=== PATIENT | male | born 1950 | race Caucasian/White ===

== ENCOUNTER → 2020-06-01 | Outpatient (CLI) | payer MEDICARE ==
[2020-06-01 10:16] LABS: HCT 45.3 % (39.0-53.0); HGB 14.6 gm/dL (13.0-17.5); MCH 31.2 pg (25.0-35.0); MCHC 32.3 g/dL (31.0-37.0); MCV 96.7 fL (80.0-100.0); Mean Platelet Volume 7.7; Platelet Count 280 k/uL (150-450); RBC 4.68 m/uL (4.30-5.90); RDW 13.3 % (11.5-15.5); WBC 4.8 k/uL (3.8-10.6)
[2020-06-01 10:27] LABS: INR 0.9 (<1.2); Partial Thromboplastin Time 24.3 sec (22.0-30.0); Prothrombin Time 9.7 sec (9.0-12.0)
[2020-06-01 10:35] LABS: ALT 20 U/L (4-49); AST 26 U/L (17-59); African American GFR (CKD) >90 (>60 ml/min/1.73 sqM); Albumin 3.8 g/dL (3.5-5.0); Alkaline Phosphatase 60 U/L (38-126); Anion Gap 3 mmol/L; Blood Urea Nitrogen 17 mg/dL (9-20); Calcium 8.7 mg/dL (8.4-10.2); Carbon Dioxide 26 mmol/L (22-30); Chloride 110 mmol/L (98-107); Glucose 91 mg/dL (74-99); Non-African American GFR(CKD) >90 (>60 ml/min/1.73 sqM); Potassium 4.5 mmol/L (3.5-5.1); Sodium 139 mmol/L (137-145); Total Bilirubin 0.6 mg/dL (0.2-1.3); Total Protein 6.8 g/dL (6.3-8.2)
[2020-06-01 12:01] LABS: Appearance,Urine Cloudy (Clear); Bacteria,Urine Occasional /hpf; Bilirubin,Urine Negative (Negative); Blood,Urine Negative (Negative); Color,Urine Yellow; Glucose,Urine (UA) Negative (Negative); Ketones,Urine Negative (Negative); Leukocyte Esterase,Urine Large (Negative); Mucus,Urine Occasional /hpf; Nitrite,Urine Positive (Negative); Protein,Urine Trace (Negative); Specific Gravity,Urine 1.021 (1.001-1.035); Squamous Epithelial Cell,Urine <1 /hpf (0-4); WBC,Urine 51 /hpf (0-5)
== END | disposition home or self-care (01) ==
LOC: LABPAT 08:38
PROVIDERS: ATTEND Orthopaedic Surgery
DX: Z01.818 Encounter for other preprocedural examination (principal); M16.11 Unilateral primary osteoarthritis, right hip; Z01.812 Encounter for preprocedural laboratory examination
CPT/HCPCS: 80053; 81001; 85027; 85610; 85730; 87070

== ENCOUNTER → 2020-08-24 | Outpatient (CLI) | payer MEDICARE ==
[2020-08-24 12:01] LABS: HCT 47.2 % (39.0-53.0); HGB 15.5 gm/dL (13.0-17.5); MCH 31.6 pg (25.0-35.0); MCHC 32.8 g/dL (31.0-37.0); MCV 96.4 fL (80.0-100.0); Mean Platelet Volume 7.5; Platelet Count 258 k/uL (150-450); RDW 12.6 % (11.5-15.5); WBC 6.1 k/uL (3.8-10.6)
[2020-08-24 12:12] LABS: Appearance,Urine Clear (Clear); Bacteria,Urine Many /hpf; Bilirubin,Urine Negative (Negative); Blood,Urine Negative (Negative); Color,Urine Light Yellow; Glucose,Urine (UA) Negative (Negative); Ketones,Urine Negative (Negative); Leukocyte Esterase,Urine Moderate (Negative); Mucus,Urine Rare /hpf; Nitrite,Urine Negative (Negative); PH, Urine 5.5 (5.0-8.0); Protein,Urine Negative (Negative); RBC,Urine 2 /hpf (0-5); Squamous Epithelial Cell,Urine <1 /hpf (0-4); Urobilinogen,Urine <2.0 mg/dL (<2.0); WBC,Urine 13 /hpf (0-5)
[2020-08-24 12:17] LABS: ALT 26 U/L (4-49); AST 28 U/L (17-59); African American GFR (CKD) >90 (>60 ml/min/1.73 sqM); Albumin 4.4 g/dL (3.5-5.0); Alkaline Phosphatase 60 U/L (38-126); Anion Gap 8 mmol/L; Blood Urea Nitrogen 16 mg/dL (9-20); Calcium 9.5 mg/dL (8.4-10.2); Carbon Dioxide 27 mmol/L (22-30); Chloride 104 mmol/L (98-107); Glucose 90 mg/dL (74-99); Non-African American GFR(CKD) >90 (>60 ml/min/1.73 sqM); Potassium 4.9 mmol/L (3.5-5.1); Sodium 139 mmol/L (137-145); Total Bilirubin 0.7 mg/dL (0.2-1.3); Total Protein 7.5 g/dL (6.3-8.2)
[2020-08-24 12:23] LABS: INR 0.9 (<1.2); Partial Thromboplastin Time 23.6 sec (22.0-30.0); Prothrombin Time 10.1 sec (9.0-12.0)
== END | disposition home or self-care (01) ==
LOC: LABPAT 10:34
PROVIDERS: ATTEND Orthopaedic Surgery
DX: Z01.818 Encounter for other preprocedural examination (principal); M25.551 Pain in right hip; M16.11 Unilateral primary osteoarthritis, right hip; Z79.01 Long term (current) use of anticoagulants
CPT/HCPCS: 36415; 80053; 81001; 85027; 85610; 85730; 86850; 86900; 86901; 87086

== ENCOUNTER 2020-08-30 05:31 | Day surgery (SDC) | payer MEDICARE ==
[2020-08-24 15:38] VITALS: BMI 30.5
[~2020-08-30 05:31] MED LIST: ACETAMINOPHEN TAB 500 MG TAB PO PRN; GABAPENTIN 300 MG CAP PO PRN; MELOXICAM 7.5 MG TAB PO PRN; TRANEXAMIC ACID 1,000 MG in SODIUM CHLORIDE 0.9% 100 ML IVPB PRN
[2020-08-30] MEDS ORDERED: LACTATED RINGERS 1,000 ML IV SCH (05:33)
[2020-08-30] MEDS ORDERED: ONDANSETRON 4 MG/2 ML VIAL IVP ONE (05:33)
[2020-08-30] MEDS ORDERED: LIDOCAINE 1% (10MG/ML) FOR IV START INTRADERMA PRN (05:33)
[2020-08-30] MEDS ORDERED: DEXAMETHASONE SOD PHOSPHATE 4 MG/ML 1 ML VIAL IV ONE (05:33)
[2020-08-30] MEDS ORDERED: SODIUM CHLORIDE 0.9% 100 ML BAG ONE (06:53)
[2020-08-30] MEDS ORDERED: PROPOFOL 10 MG/ML 20 ML VIAL IV ONE (06:53)
[2020-08-30] MEDS ORDERED: HYDROmorphone (PF) 1 MG/ML ONE (06:53)
[2020-08-30] MEDS ORDERED: TRANEXAMIC ACID 1,000 MG/10 ML VIAL ONE (06:53)
[2020-08-30] MEDS ORDERED: MIDAZOLAM 2 MG/2 ML VIAL ONE (06:53)
[2020-08-30] MEDS ORDERED: HEPARIN SODIUM,PORCINE 10,000 UNIT/ML 1 ML VIAL ONE (06:53)
[2020-08-30] MEDS ORDERED: GLYCOPYRROLATE 0.2 MG/ML 2 ML VIAL ONE (06:53)
[2020-08-30] MEDS ORDERED: NEOSTIGMINE 1 MG/ML 10 ML VIAL ONE (06:53)
[2020-08-30] MEDS ORDERED: PHENYLEPHRINE-0.9% NACL SYG 1,000 MCG/10 ML SYRINGE ONE (06:53)
[2020-08-30] MEDS ORDERED: ROCURONIUM 10 MG/ML (5 ML VIAL) IV ONE (06:53)
[2020-08-30] MEDS ORDERED: LIDOCAINE 1% INJ 10MG/ML (20 ML MDV) ONE (06:53)
[2020-08-30] MEDS ORDERED: SODIUM CHLORIDE 0.9% IRRIG 1,000 ML BTL IRRIGATION ONE (06:53)
[2020-08-30] MEDS ORDERED: ePHEDrine SULFATE/0.9% NACL/PF 50 MG/5 ML SYRINGE IV ONE (06:53)
[2020-08-30] MEDS ORDERED: fentaNYL (PF) 50 MCG/ML 2 ML AMP ONE (06:53)
[2020-08-30] MEDS ORDERED: SUCCINYLCHOLINE CHLORIDE 100 MG/5 ML SYR IV ONE (06:53)
[2020-08-30] MEDS ORDERED: ceFAZolin 3,000 MG in SODIUM CHLORIDE 0.9% IRRIGATIO 3,000 ML IRRIGATION ONE (06:58)
[2020-08-30] MEDS ORDERED: HYDROmorphone 0.2 MG/1 ML SYRINGE IVP PRN (07:04)
[2020-08-30] MEDS ORDERED: NALOXONE 0.4 MG/ML 1 ML VIAL IV PRN (07:04)
[2020-08-30] MEDS ORDERED: HYDROmorphone 0.5 MG/0.5 ML SYRINGE IVP PRN ×2 (07:04)
[2020-08-30] MEDS: ROPIVACAINE 246.25 MG, EPINEPHrine 0.5 MG, KETOROLAC 30 MG, cloNIDine HCL/PF 80 MCG, WA... MISCELLANE PRN ×10 (07:05→08:04)
[2020-08-30] MEDS ORDERED: HYDROcodone/APAP 7.5-325MG 1 EACH TAB PO PRN ×2 (07:05)
[2020-08-30] MEDS ORDERED: SODIUM CHLORIDE 0.9% 1,000 ML IV SCH (07:15)
[2020-08-30] MEDS ORDERED: LACTATED RINGERS 1,000 ML IV ONE (08:22)
--- NOTE | 2020-08-30 08:26 | FL ---
EXAMINATION TYPE: FL guidance operating room, XR Hip Limited RT DATE OF EXAM: 08/30/2020 CLINICAL HISTORY: Right hip pain and osteoarthritis. TECHNIQUE: Fluoroscopy. X-ray right hip limited intraoperatively. COMPARISON: None. FINDINGS: Fluoroscopic guidance was provided during right hip replacement procedure performed by Dr. Bergman. A total of 25 seconds of fluoroscopic time was utilized during the procedure and 2 spot i ntraoperative images are acquired. Intraoperative images obtained show metallic hardware from total right hip arthroplasty satisfactory in position on frontal projection. IMPRESSION: As Above.
--- NOTE | 2020-08-30 08:29 | P.OP ---
Date of Procedure: 08/30/20 Preoperative Diagnosis: severe osteoarthritis right hip Postoperative Diagnosis: severe osteoarthritis right hip Procedure(s) Performed: right total hip arthroplasty with a direct anterior approach Implants: [employer] Polarstem standard size 5 [employer] R3, 3 hole hemispherical acetabular shell, 54 mm [employer] Reflection 6.5 mm cancellus screw, 20 mm 2 [employer] R3, XLPE 20 acetabular liner [employer] Oxinium femoral head 36 m, +4 All components were press-fit. The articulation is Oxinium on polyethylene. Anesthesia: GETA Surgeon: Didier Bergman Cornetist #1: Nellie Saleh Estimated Blood Loss (ml): 150 (67 mL returned with Cell Saver) Pathology: other (femoral head) Condition: stable Disposition: PACU Indications for Procedure: After failure of conservative treatment we discussed the surgical and nonsurgical treatment options at length. Patient wishes to proceed with a total hip arthroplasty with a direct anterior approach. Complications specific to this procedure were discussed at length, including but not limited to infection, leg length discrepancy, dislocation, nerve injury, and fracture. Covid-19 was also discussed at length with the patient, and they are aware of the current policies and procedures. The patient was given the option of delaying surgery, but they elect to proceed knowing these risks. Patient is aware of all these complications and informed consent was obtained Operative Findings: the operative findings are consistent with severe osteoarthritis of the right hip Description of Procedure: Patient was seen and evaluated in the preoperative area and the consent was reviewed. The operative site was marked with a skin marker. The patient was then brought to the operating room and given preoperative antibiotics intravenously. 1 g of Tranexamic acid was also given intravenously. A general anesthetic was administered by the anesthesia department. The patient was then placed on the [place] table with the bony prominences well-padded. The hip area was then prepped with a ChloraPrep solution and draped in the usual sterile fashion. A universal timeout was then performed, which confirmed the patient's name, surgical site, ALLERGIES, and procedure being performed on the consent. Next the incision site was located at 1 cm distal to the anterior superior iliac spine along the flexion crease of the right hip. The skin and subcutaneous tissues were sharply incised. Incision was carefully dissected down to the fascia overlying the tensor fascia claudine muscle. This fascia was then incised in line with the incision. Care was taken to stay laterally in order to avoid injuring the lateral femoral cutaneous nerve. Next, using blunt finger dissection, the tensor fascia claudine muscle was dissected off its investing fascia. The muscle was then carefully retracted laterally with a cobra retractor over the lateral neck of the femur. Next, the circumflex vessels were identified and cauterized using the AquaMantis device. The anterior hip capsule was then exposed. The capsule was then opened and an inverted T fashion. Cobra retractors were then placed intracapsularly. The retractors were maintained intracapsular throughout the procedure. The proximal femur was then visualized. A small amount of traction was placed on the leg. The femoral neck was then osteotomized appropriate level above the lesser trochanter. A small wedge of bone was then removed from the remaining femoral head. Next, using a corkscrew the femoral head was removed from the acetabulum. On gross visual inspection, the femoral head had complete loss of articular cartilage and multiple periarticular osteophytes. The femoral head was then measured. Attention was then turned to the acetabulum. The acetabulum was exposed and any remaining labrum was excised. Sequential reaming of the acetabulum was performed using fluoroscopic guidance until there was a good bed of bleeding cancellus bone. When the appropriate size was reached, a trial was then placed. The position and fit of the trial was checked with fluoroscopy. The trial was then removed. Then, using fluoroscopic g uidance, the final implant was impacted at 20 of anteversion and 40 of abduction, and fully seated in the acetabulum. 2 screws were then placed in the acetabulum. Again fluoroscopy was used to check position of the screws. Next, the liner was then impacted, with a 20 elevated liner located in the anterior superior quadrant. Component locking was confirmed. Attention was then directed to the femur. With the aid of the [place] table, the femur was externally rotated to approximately 130, extended, and adducted under the opposite leg. A side hook was then placed under the proximal femur, and the side hook elevator was used to elevate the proximal femur while releasing the capsule. Retractors were then placed. A capsular release was performed, as well as a release of the conjoined tendon, which afforded excellent visualization of the proximal femur. Next, a box osteotome was used to lateralize the proximal femur. A director of online merchandising was then used to locate the femoral canal. Sequential broaching was then performed with appropriate size which afforded excellent fixation in the proximal femur. A trial was then placed with appropriate head and neck, and the hip was gently reduced with the aid of the [place] table. Fluoroscopy was then used to check position of the components, as well as to ensure equal leg lengths. The hip was then gently dislocated and the trials were then removed. Final implants were then impacted and the hip was again reduced. Final fluoroscopic x-rays confirmed that the components were in anatomic position, as well as equal leg lengths. The hip was also taken through range of motion, and found to be stable. The hip was then copiously irrigated with antibiotic solution with pulsatile lavage. The hip was then irrigated with Irrisept solution. The soft tissues were then injected with a ropivacaine solution, which consisted of 246.25 mg of ropivacaine, 0.5 mg of epinephrine, 30 mg of Toradol, 80 g of clonidine, and 48.45 mL of sterile water, for a total of 100 mL of fluid injected. A second dose of 1 g of Tranexamic acid was also given intravenously. Any blood collected by Cell Saver was then returned to the patient at this time. The fascia was then closed with 2-0 strata fix suture. The subcutaneous tissue was closed with 3-0 Vicryl. The subcuticular tissue was closed with 3-0 strata fix suture. The skin was then closed with Exofin skin glue. After the glue and dried, and Optifoam silver impregnated dressing was applied. The patient was then transferred to the recovery room in stable condition. The emergency veterinary assistant FRANCHESKA Jessica was required due to the complexity of surgery, and the need for skilled entry level marketing assistant for positioning, draping, exposure, retraction, and closure of the wound.
[2020-08-30 08:41] VITALS: TEMP 97
[2020-08-30] MEDS: HYDROmorphone 0.5 MG/0.5 ML SYRINGE IVP PRN ×4 (08:53→09:17)
[2020-08-30] MEDS ORDERED: KETOROLAC 15 MG/ML 1 ML VIAL IVP ONE (08:54)
[2020-08-30] MEDS: ONDANSETRON 4 MG/2 ML VIAL IVP PRN ×2 (08:54→13:25)
--- NOTE | 2020-08-30 09:08 | XR ---
EXAMINATION TYPE: XR Hip Limited RT DATE OF EXAM: 08/30/2020 CLINICAL HISTORY: Right hip pain and osteoarthritis. TECHNIQUE: Single AP portable view of right hip is obtained immediately postoperatively. COMPARISON: None. FINDINGS: Metallic hardware from right hip arthroplasty is seen and appears satisfactory in alignment and position. There is evidence of recent surgery with subcutaneous gas noted laterally. IMPRESSION: Metallic hardware from right hip arthroplasty is satisfactory in position.
[2020-08-30 09:31] VITALS: RESP 16
[2020-08-30 13:22] VITALS: PULSE 80
[2020-09-01 10:37] VITALS: BP 117/75
== END 2020-08-30 13:30 | disposition home health service (06) ==
LOC: OR 05:31
PROVIDERS: ATTEND Orthopaedic Surgery
DX: M16.11 Unilateral primary osteoarthritis, right hip (principal); M25.751 Osteophyte, right hip; N40.0 Benign prostatic hyperplasia without lower urinary tract symptoms
CPT/HCPCS: 97110; 97161; 88300; 73501; 27130; J0171; J1100; J0690 ×2; J2405; J1885 ×2; J2795; J0735; J1170; 86891

== ENCOUNTER 2021-06-30 11:18 | Emergency (ER) | payer MEDICARE ==
[2021-06-30 11:24] VITALS: RESP 18; TEMP 98.2
[2021-06-30 12:32] LABS: Appearance,Urine Clear (Clear); Bilirubin,Urine Negative (Negative); Blood,Urine Negative (Negative); Color,Urine Yellow; Glucose,Urine (UA) Negative (Negative); Hyaline Casts,Urine 1 /lpf (0-2); Ketones,Urine Negative (Negative); Leukocyte Esterase,Urine Moderate (Negative); Mucus,Urine Rare /hpf; Nitrite,Urine Negative (Negative); PH, Urine 5.5 (5.0-8.0); Protein,Urine Negative (Negative); RBC,Urine 2 /hpf (0-5); Specific Gravity,Urine 1.015 (1.001-1.035); Urobilinogen,Urine <2.0 mg/dL (<2.0); WBC,Urine 36 /hpf (0-5)
--- NOTE | 2021-06-30 12:33 | US ---
EXAMINATION TYPE: US scrotum with doppler. DATE OF EXAM: 06/30/2021 COMPARISON: NONE CLINICAL HISTORY: 70-year-old male pain. Right-sided swelling. TECHNIQUE: Grayscale and color Doppler Duplex imaging performed of the scrotum. Findings: The EXAM MEASUREMENTS: TESTICLES: Right Testicle: 4.9 x 3.0 x 2.9 cm Left Testicle: 4.6 x 2.5 x 2.9 cm EPIDIDYMIS HEAD: Right Epididymis: 1.8 x 1.2 cm Left Epididymis: 0.9 x 0.7 cm Doppler performed to assess for testicular vascularity; good bilateral color flow and waveforms are s een. There is no evidence of testicular torsion. Presence of hydroceles: small amount of fluid around left testicle. Lapping Machine Set Up Operator notes: Echogenic area superior to right testicle demonstrates some vascularity, unknown e tiology. IMPRESSION: 1. No sonographic evidence for testicular torsion or epididymoorchitis. 2. Echogenic area superior to the right testicle could represent fat containing right inguinal hernia extending into the scrotal sac. CT may be needed to further assess. 3. Small left hydrocele.
--- NOTE | 2021-06-30 12:54 | ED ---
General Adult HPI - General Chief complaint: Urogenital Stated complaint: rt testicle swelling Time Seen by Provider: 06/30/21 11:37 Source: patient, RN notes reviewed Mode of arrival: ambulatory Limitations: no limitations - History of Present Illness Initial comments: 70-year-old male presents emergency Department with chief complaint of right sided testicular swelling. Patient still has slight worse today states is minimal discomfort states it is noticeable. Noted complaints of fevers chills no dysuria no diarrhea constipation patient states she has mild right groin pain denies any swelling or trauma. Patient states that he's had recent right hip surgery no testicular, lower abdominal surgeries. - Related Data Home Medications Medication Instructions Recorded Confirmed Ibuprofen [Motrin] 800 mg PO Q8H PRN 05/31/20 08/24/20 Previous Rx's Medication Instructions Recorded Aspirin 325 mg PO BID #60 tab 08/30/20 Celecoxib [CeleBREX] 200 mg PO DAILY 5 Days #5 capsule 08/30/20 Gabapentin 300 mg PO BID 5 Days #10 cap 08/30/20 HYDROcodone/APAP 7.5-325MG [[place] 1 - 2 tab PO Q6H PRN #32 tab 08/30/20 7.5-325] Ondansetron [Zofran ODT] 4 mg PO Q8HR PRN #10 tab 08/30/20 Sennosides [Senokot] 2 tab PO DAILY PRN #60 tablet 08/30/20 Sulfamethox-Tmp 800-160Mg [Bactrim 1 each PO Q12HR #20 tab 06/30/21 Ds] Allergies Allergy/AdvReac Type Severity Reaction Status Date / Time No Known Allergies Allergy Verified 06/30/21 11:23 Review of Systems ROS Statement: Those systems with pertinent positive or pertinent negative responses have been documented in the HPI. ROS Other: All systems not noted in ROS Statement are negative. Past Medical History Past Medical History: Osteoarthritis (OA), Prostate Disorder Additional Past Medical History / Comment(s): BPH straight caths for urination History of Any Multi-Drug Resistant Organisms: None Reported Past Surgical History: No Surgical Hx Reported Past Anesthesia/Blood Transfusion Reactions: No Reported Reaction Additional Past Anesthesia/Blood Transfusion Reaction / Comment(s): has never had anesthesia Past Psychological History: No Psychological Hx Reported Smoking Status: Never smoker Past Alcohol Use History: None Reported Past Drug Use History: None Reported - Past Family History Father Family Medical History: Cancer, Rheumatoid Arthritis (RA) General Exam Limitations: no limitations General appearance: alert, in no apparent distress Head exam: Present: atraumatic, normocephalic, normal inspection Eye exam: Present: normal appearance, PERRL, EOMI. Absent: scleral icterus, conjunctival injection, periorbital swelling Neck exam: Present: normal inspection. Absent: tenderness, meningismus, lymphadenopathy Respiratory exam: Present: normal lung sounds bilaterally. Absent: respiratory distress, wheezes, rales, rhonchi, stridor Cardiovascular Exam: Present: regular rate, normal rhythm, normal heart sounds. Absent: systolic murmur, diastolic murmur, rubs, gallop, clicks GI/Abdominal exam: Present: soft, normal bowel sounds. Absent: distended, ten derness, guarding, rebound, rigid exam: Present: scrotal swelling (Mild left). Absent: testicular tenderness, urethral discharge, vertical testicular lie Course Vital Signs 06/30/21 11:20 Temperature 98.2 F Pulse Rate 86 Respiratory 18 Rate Blood Pressure 145/84 O2 Sat by Pulse 97 Oximetry Medical Decision Making - Medical Decision Making Patient presented testicular swelling. Ultrasound was performed which they were concerned about possible minimal hernia CT does not reveal evidence of this. Patient has significant large prostate patient does have evidence of urinary tract infection will be discharged on oral antibiotics with follow-up with urology return parameters discussed. - Lab Data Lab Results 06/30/21 Range/Units 11:57 Urine Color Yellow Urine Appearance Clear (Clear) Urine pH 5.5 (5.0-8.0) Ur Specific [place] 1.015 (1.001-1.035) Urine Protein Negative (Negative) Urine Glucose (UA) Negative (Negative) Urine Ketones Negative (Negative) Urine Blood Negative (Negative) Urine Nitrite Negative (Negative) Urine Bilirubin Negative (Negative) Urine Urobilinogen <2.0 (<2.0) mg/dL Ur Leukocyte Esterase Moderate H (Negative) Urine RBC 2 (0-5) /hpf Urine WBC 36 H (0-5) /hpf Hyaline Casts 1 (0-2) /lpf Urine Mucus Rare H (None) /hpf Disposition Clinical Impression: Scrotal swelling, Urinary tract infection, BPH (benign prostatic hyperplasia) Disposition: HOME SELF-CARE Condition: Stable Instructions (If sedation given, give patient instructions): Urinary Tract Infection in Men (ED) Additional Instructions: Please return to the Emergency Department if symptoms worsen or any other concerns. Prescriptions: Sulfamethox-Tmp 800-160Mg [Bactrim Ds] 1 each PO Q12HR #20 tab Is patient prescribed a controlled substance at d/c from ED?: No Referrals: Heath Gonzalez DO [Primary Care Provider] - 1-2 days Omari Priest MD [STAFF PHYSICIAN] - 1-2 days Time of Disposition: 13:31
--- NOTE | 2021-06-30 13:12 | CT ---
EXAMINATION TYPE: CT abdomen pelvis wo con DATE OF EXAM: 06/30/2021 COMPARISON: None HISTORY: 70-year-old male pain, possible hernia CT DLP: 1111.4 mGycm. Automated exposure control for dose reduction was used. TECHNIQUE: Contiguous axial scanning of the abdomen and pelvis without IV contrast. Coronal and sagit allyson reconstructions performed. FINDINGS: Heart normal size with trace anterior basilar pericardial fluid. Mild emphysematous change in the low er lungs. Patchy peripheral groundglass densities are present. Suspect sequela of COVID pneumonia. Mildly lobulated 2.3 cm cyst right hepatic dome. There is a 1.5 cm gallstone at the neck of the gallbladder but no abnormal gallbladder distention or surrounding inflammation. Adrenal glands, right kidney, spleen, and pancreas within normal limits. Cortical defect lateral upper pole left kidney suggests sequela of prior vascular or infectious insul t. No dilated small bowel, free fluid, or free air. Scattered nonenlarged retroperitoneal nodes. No mese nteric lymphadenopathy. Normal appendix. Mild stool burden. Mild left-sided colonic diverticulosis. No colonic inflammatory c hange. Bladder is nondistended. Mild circumferential bladder wall thickening. Prominent prostatomegaly at 7. 7 cm wide and 9.0 cm craniocaudal. Nonspecific 1.3 x 0.8 cm nodule, lymph node anterior left side of the pelvis, axial image 80. No abno rmal fluid collection in the pelvis more otherwise, abnormal lymphadenopathy seen. No sizable inguinal or femoral canal hernia is identified with particular attention to the right. Lar ge patient body habitus. Bones: Right apical arthroplasty. Moderate degenerative change left hip. Hypertrophic facet arthropat hy throughout the lumbar spine. Moderate to advanced multilevel degenerative changes throughout the l ower thoracic and lumbar spine. Grade 1 retrolisthesis L2-L3 L3-L4. IMPRESSION: 1. No sizable inguinal or femoral canal hernia identified. Echogenic tissue within the upper right s crotum seen on ultrasound can be reassessed with outpatient urology follow-up and 3 month follow-up s crotal ultrasound. This may represent nonspecific fat related to body habitus. No clear fatty mass is identified to suggest a more aggressive lesion. 2. Marked prostatomegaly (9.0 x 7.7 cm). Correlate for severe BPH and exclude underlying prostate ca ncer. Prominent 1.3 x 0.8 cm lymph node in the left side of the pelvis is nonspecific. Correlate with PSA values. 3. Circumferential bladder wall thickening could represent chronic bladder hypertrophy or cystitis. 4. A 1.5 cm gallstone at the neck of the gallbladder. No ancillary imaging findings of acute cholecy stitis. 5. Patchy peripheral groundglass densities in the visualized lower lungs. Suspect sequela of COVID p neumonia, possibly with the development of scarring. Clinically correlate. 6. Mild left-sided chronic diverticulosis without acute diverticulitis.
[2021-06-30] MEDS: cefTRIAXone 1,000 MG VIAL (IM USE) IM STA (13:59)
[2021-06-30] MEDS: SULFAMETH-TMP DS STARTER PACK 2 TAB BTL PO STA (14:06)
[2021-06-30 14:09] VITALS: BP 120/64; PULSE 76
== END 2021-06-30 14:08 | disposition home or self-care (01) ==
LOC: EC 11:18
DX: N50.89 Other specified disorders of the male genital organs (principal); N39.0 Urinary tract infection, site not specified; N40.0 Benign prostatic hyperplasia without lower urinary tract symptoms; M19.90 Unspecified osteoarthritis, unspecified site; Z79.82 Long term (current) use of aspirin; Z79.1 Long term (current) use of non-steroidal anti-inflammatories (NSAID); Z79.899 Other long term (current) drug therapy
CPT/HCPCS: 81001; 87086; 93975; 76870; 74176; 99284; 96372; J0696

== ENCOUNTER → 2021-12-28 | Outpatient (CLI) | payer MEDICARE ==
--- NOTE | 2021-12-28 10:36 | US ---
EXAMINATION TYPE: US scrotum with doppler. Grayscale and color Doppler Duplex imaging performed of t he scrotum. DATE OF EXAM: 12/28/2021 COMPARISON: NONE CLINICAL HISTORY: N50.89 DISORDERS OF THE MALE GENITAL ORGANS. edema EXAM MEASUREMENTS: TESTICLES: Right Testicle: 4.2 x 2.5 x 3.6 cm Left Testicle: 4.4 x 2.6 x 2.9 cm EPIDIDYMIS HEAD: Right Epididymis: .8 x 1.1 x .9 cm Left Epididymis: .9 x .9 x .6 cm Presence of hydroceles: small amount of fluid right testicle Presence of varicoceles: no IMPRESSION: 1. Very minimal right hydrocele and otherwise unremarkable testicular ultrasound
== END | disposition home or self-care (01) ==
LOC: RADUSWWP 09:27
PROVIDERS: ATTEND Urology
DX: N43.3 Hydrocele, unspecified (principal); N50.89 Other specified disorders of the male genital organs
CPT/HCPCS: 76870; 93975